=== PATIENT | female | born 1970 | race Caucasian/White ===

== ENCOUNTER 2017-12-08 20:09 | Observation (INO) | payer OTHER ==
[~2017-12-08] VITALS: Ht 154.9 cm; Wt 77.0 kg
[2017-12-08 21:15] LABS: BASOPHILS ABSOLUTE AUTO 0.03 K/mm3 (0.00-0.23); BASOPHILS PERCENT AUTO 1 % (0-2); EOSINOPHILS ABSOLUTE AUTO 0.09 K/mm3 (0.00-0.68); EOSINOPHILS PERCENT AUTO 2 % (0-6); Hematocrit 36.9 % (33.0-51.0); Hemoglobin 12.1 g/dL (11.5-16.0); IMMATURE GRAN ABSOLUTE AUTO 0.01 K/mm3 (0.00-0.10); IMMATURE GRAN PERCENT AUTO 0 % (0-1); LYMPHOCYTES ABSOLUTE AUTO 1.85 K/mm3 (0.84-5.20); LYMPHOCYTES PERCENT AUTO 31 % (21-46); MONOCYTES ABSOLUTE AUTO 0.53 K/mm3 (0.16-1.47); MONOCYTES PERCENT AUTO 9 % (4-13); Mean Corpuscular HGB 32.7 pg (26.0-34.0); Mean Corpuscular HGB Conc 32.8 g/dL (31.5-36.5); Mean Corpuscular Volume 100 fL (80-100); Mean Platelet Volume 9.3 fL (9.1-12.4); NEUTROPHILS ABSOLUTE AUTO 3.54 K/mm3 (1.96-9.15); NEUTROPHILS PERCENT AUTO 58 % (41-73); Platelet Count 320 K/mm3 (150-400); RDW Coefficient Variation 12.9 % (11.7-14.2); RDW Standard Deviation 47.3 fL (35.1-46.3); White Blood Cell Count 6.05 K/mm3 (4.00-11.30)
[2017-12-08 21:26] LABS: Alanine Aminotransfer (ALT/SGP 23 U/L (12-78); Albumin, Blood 3.2 g/dL (3.4-5.0); Albumin/Globulin Ratio 0.8 (0.8-1.8); Alk Phos 127 U/L (50-136); Anion Gap 5 mmol/L (6-16); Aspartate Aminotrans (AST/SGOT 10 U/L (12-37); Bilirubin, Total 0.1 mg/dL (0.1-1.0); Blood Urea Nitrogen 24 mg/dL (8-24); Bun/Creatinine Ratio 33.4 (12.0-20.0); CO2, Blood 29 mmol/L (21-32); Calcium, Blood 8.6 mg/dL (8.5-10.1); Chloride, Blood 108 mmol/L (98-108); Creatinine, Blood 0.72 mg/dL (0.40-1.00); Dilantin (Phenytoin), Total 6.3 ug/mL (10.0-20.0); Globulin, Blood 3.8 g/dL (2.2-4.0); Glomerular Filtration Rate >60 (60-); Glucose, Blood 90 mg/dL (70-99); Potassium, Blood 3.9 mmol/L (3.5-5.5); Sodium, Blood 142 mmol/L (136-145); Valproic Acid <3.0 ug/mL (50.0-100.0)
[2017-12-08] MEDS ORDERED: Naltrexone HCl50 MG PO (22:05)
[2017-12-08] MEDS ORDERED: RISP4 PO (22:05)
[2017-12-08] MEDS ORDERED: CLON.1 PO (22:05)
[2017-12-08] MEDS ORDERED: PARO30 PO (22:06)
[2017-12-08] MEDS ORDERED: CHOL10002 PO (22:06)
[2017-12-08] MEDS ORDERED: OLAN7.5 PO (22:07)
[2017-12-08] MEDS ORDERED: CHLORHEXIDINE FL1 ML UD (22:07)
[2017-12-08] MEDS ORDERED: PHENY50CH PO (22:08)
[2017-12-08] MEDS ORDERED: HEARTBURN RELI150 M1 PO (22:09)
[2017-12-08] MEDS ORDERED: CIPDEXSU BOTHEARS (22:10)
[2017-12-08] MEDS ORDERED: ACET500 PO (22:10)
[2017-12-08] MEDS ORDERED: CLON.5 PO (22:10)
[2017-12-08] MEDS ORDERED: BENADRYL25 MG PO (22:11)
[2017-12-09 02:33] LABS: Valproic Acid 48.3 ug/mL (50.0-100.0)
[2017-12-09 06:39] LABS: Anion Gap 7 mmol/L (6-16); Blood Urea Nitrogen 14 mg/dL (8-24); Bun/Creatinine Ratio 21.7 (12.0-20.0); CO2, Blood 27 mmol/L (21-32); Calcium, Blood 9.1 mg/dL (8.5-10.1); Chloride, Blood 109 mmol/L (98-108); Creatinine, Blood 0.64 mg/dL (0.40-1.00); Glomerular Filtration Rate >60 (60-); Glucose, Blood 102 mg/dL (70-99); Potassium, Blood 4.1 mmol/L (3.5-5.5); Sodium, Blood 143 mmol/L (136-145); Valproic Acid 38.7 ug/mL (50.0-100.0)
[2017-12-09 11:17] LABS: Valproic Acid 33.1 ug/mL (50.0-100.0)
== END 2017-12-09 13:50 | disposition home or self-care (01) ==
LOC: ER 20:09 → ICUW 20:10
PROVIDERS: Emergency Medicine; Hospitalist
DX: T42.6X1A Poisoning by other antiepileptic and sedative-hypnotic drugs, accidental (unintentional), initial encounter (principal); T43.591A Poisoning by other antipsychotics and neuroleptics, accidental (unintentional), initial encounter; T44.7X1A Poisoning by beta-adrenoreceptor antagonists, accidental (unintentional), initial encounter; T46.6X1A Poisoning by antihyperlipidemic and antiarteriosclerotic drugs, accidental (unintentional), initial encounter; F43.10 Post-traumatic stress disorder, unspecified; G40.909 Epilepsy, unspecified, not intractable, without status epilepticus; K21.9 Gastro-esophageal reflux disease without esophagitis; Z79.899 Other long term (current) drug therapy
CPT/HCPCS: 36415; 80048; 80053; 80164; 80185; 82140; 85025; 93005; 93010; 96372; 99285; G0378; J1650; J7120

== ENCOUNTER 2018-09-03 06:27 | Day surgery (SDC) | payer OTHER ==
[~2018-09-03] VITALS: Ht 154.9 cm; Wt 77.1 kg
--- NOTE | 2018-09-03 08:09 | NUR ---
09/03/18 0809 Kelly Lemons PT'S BREAST AND PELVIC EXAM COMPLETED FIRST BY DR. WU. CERVICAL POLYP NOTED AND PATHOLOGY SPECIMEN SENT TO LAB.
--- NOTE | 2018-09-03 11:09 | NUR ---
09/03/18 1109 Cynthia Jaeger CAREGIVER VERBALIZED UNDERSTANDING OF DISCHARGE INSTRUCTIONS. PATIENT AWAKE ALERT DRINKING SODA. DENIES PAIN OR NAUSEA
== END 2018-09-03 10:53 | disposition home or self-care (01) ==
LOC: ORSCSDS 06:27
PROVIDERS: Dentist Pediatric Dentistry
PROC: 8E0UXY7 Examination of Female Reproductive System (ICD-10-PCS; principal; 2018-09-03 07:30)
PROC: 0UBC7ZX Excision of Cervix, Via Natural or Artificial Opening, Diagnostic (ICD-10-PCS; principal; 2018-09-03 07:30)
PROC: 0CDXXZ0 Extraction of Lower Tooth, Single, External Approach (ICD-10-PCS; principal; 2018-09-03 07:30)
DX: Z01.419 Encounter for gynecological examination (general) (routine) without abnormal findings (principal); N84.1 Polyp of cervix uteri; K02.9 Dental caries, unspecified; K05.30 Chronic periodontitis, unspecified; R56.9 Unspecified convulsions; R62.50 Unspecified lack of expected normal physiological development in childhood; F43.10 Post-traumatic stress disorder, unspecified; Z79.899 Other long term (current) drug therapy
CPT/HCPCS: 88305; J1100; J1885; J2250; J2405; J3010

== ENCOUNTER → 2018-09-03 | Outpatient (CLI) | payer OTHER ==
[~2018-09-03] MED LIST: ACET500 PO; BENADRYL25 MG PO; CHLORHEXIDINE FL1 ML UD; CHOL10002 PO; CIPDEXSU BOTHEARS; CLON.1 PO; CLON.5 PO; HEARTBURN RELI150 M1 PO; Naltrexone HCl50 MG PO; OLAN7.5 PO; PARO30 PO; PHENY50CH PO; RISP4 PO
[2018-09-07 15:07] LABS: HPV 16 Negative (Negative); HPV 18 Negative (Negative); HPV OTHER HR TYPES Negative (Negative)
== END | disposition home or self-care (01) ==
LOC: LAB SHORT 10:37 → LAB 10:37
PROVIDERS: Obstetrics & Gynecology Gynecology
DX: Z12.4 Encounter for screening for malignant neoplasm of cervix (principal)
CPT/HCPCS: 87624; G0123

== ENCOUNTER → 2022-01-30 | Outpatient (CLI) | payer OTHER ==
[2022-01-30 14:44] LABS: Source, Urine Clean Catch
[2022-01-30 15:09] LABS: Appearance, Urine Clear (Clear); Bilirubin, Urine Neg (Neg); Blood, Urine Neg (Neg); Glucose Qualitative, Urine Neg (Neg); Ketones, Urine Neg (Neg); Leukocyte Esterase, Urine Neg (Neg); Nitrite, Urine Neg (Neg); Protein, Urine Neg (Neg); Urobilinogen, Urine NORM (Normal)
[2022-01-30 15:31] LABS: Color, Urine Pale Yellow (P-Yellow)
== END | disposition home or self-care (01) ==
LOC: LAB SHORT 13:32 → LAB 13:32
PROVIDERS: Student in an Organized Health Care Education/Training Program
DX: R35.89 Other polyuria (principal)
CPT/HCPCS: 81003

== ENCOUNTER → 2024-10-12 | Outpatient (CLI) | payer OTHER | LOC: LAB SHORT 11:05 → LAB 11:05 | PROVIDERS: Nurse Practitioner Psychiatric/Mental Health | DX: G40.909 Epilepsy, unspecified, not intractable, without status epilepticus (principal) | CPT/HCPCS: 80185 ==

== ENCOUNTER 2025-02-03 10:06 | Emergency (ER) | payer OTHER ==
[~2025-02-03] VITALS: Ht 154.9 cm; Wt 79.4 kg
[2025-02-03 10:23] VITALS: BP 102/68
== END 2025-02-03 10:53 | disposition home or self-care (01) ==
LOC: ER 10:06
DX: R41.82 Altered mental status, unspecified (principal); G40.909 Epilepsy, unspecified, not intractable, without status epilepticus; Z79.899 Other long term (current) drug therapy
CPT/HCPCS: 99283

== ENCOUNTER → 2025-03-03 | Outpatient (CLI) | payer OTHER | LOC: LAB 12:18 → LAB SHORT 12:18 | DX: F39 Unspecified mood [affective] disorder (principal) | CPT/HCPCS: 84443 ==

== ENCOUNTER → 2025-04-25 | Outpatient (CLI) | payer OTHER ==
[2025-04-25 14:33] LABS: Source, Urine Clean Catch
[2025-04-25 18:16] LABS: Bilirubin, Urine Neg (Neg); Color, Urine Yellow (P-Yellow); Glucose Qualitative, Urine Neg (Neg); Ketones, Urine Neg (Neg); Leukocyte Esterase, Urine 2+ (Neg); Protein, Urine 1+ (Neg); Specific Gravity, Urine 1.020 (1.003-1.022); Urobilinogen, Urine NORM (Normal)
== END ==
LOC: LAB SHORT 14:31 → LAB 14:31
PROVIDERS: Obstetrics & Gynecology
DX: R63.4 Abnormal weight loss (principal)
CPT/HCPCS: 81001; 87086

== ENCOUNTER → 2025-06-06 | Outpatient (CLI) | payer OTHER ==
[~2025-06-06] MED LIST changes: +CATAPRES0.1 MG PO; +Clonazepam0.5 MG PO; +DIVA500EC PO; +ESTROVEN CMPLT M4 MG; +FAMO20 PO; +NAC600 MG PO; +PHENY100ER PO; -PHENY50CH PO; +VITAMIN D33000 UNIT PO; +ZIPR20 PO
[2025-06-06 17:24] LABS: Source, Urine Clean Catch
[2025-06-06 18:59] LABS: Bilirubin, Urine Neg (Neg); Color, Urine Yellow (P-Yellow); Glucose Qualitative, Urine Neg (Neg); Ketones, Urine Neg (Neg); Leukocyte Esterase, Urine Neg (Neg); Protein, Urine 1+ (Neg); Specific Gravity, Urine 1.020 (1.003-1.022); Urobilinogen, Urine NORM (Normal)
== END | disposition home or self-care (01) ==
LOC: LAB 17:15 → LAB SHORT 17:15
PROVIDERS: Obstetrics & Gynecology
DX: Z01.812 Encounter for preprocedural laboratory examination (principal)
CPT/HCPCS: 81001

== ENCOUNTER 2025-06-14 08:47 | Day surgery (SDC) | payer OTHER ==
[2025-06-14] VITALS (7 sets, daily range): BP systolic 116–138; BP diastolic 72–84
[~2025-06-14] VITALS: Ht 154.9 cm; Wt 57.1 kg
--- NOTE | 2025-06-14 09:25 | NUR ---
Ambulatory in Day Surgery. History, Chart, Medications and Allergies reviewed before start of procedure. Lungs clear T/O to Auscultation. Patient confirms NPO status and agrees with scheduled surgery. Pre-Op teaching done. Pt verbalizes understanding. Patient States Post-Procedure ride home has been arranged. Caregiver at bedside. Pt calm, responds approp to questions at times. Frequent re-orientation needed throughout care.
[2025-06-14] MEDS ORDERED: FentaNYL Citrate 50 MCG/ML 2 ML Injection ONE (09:47)
[2025-06-14] MEDS ORDERED: Ondansetron HCl 2 MG / ML 2ML Vial IV PRN (09:50)
[2025-06-14] MEDS ORDERED: HYDROmorphone HCl/Pf 1MG SYR IV PRN ×2 (09:50→09:55)
[2025-06-14] MEDS ORDERED: FentaNYL Citrate 50 MCG/ML 2 ML Injection IV PRN ×2 (09:50)
[2025-06-14 09:57] LABS: BASOPHILS ABSOLUTE AUTO 0.05 K/mm3 (0.00-0.23); BASOPHILS PERCENT AUTO 1 % (0-2); EOSINOPHILS ABSOLUTE AUTO 0.06 K/mm3 (0.00-0.68); EOSINOPHILS PERCENT AUTO 1 % (0-6); Hematocrit 37.9 % (33.0-51.0); Hemoglobin 12.7 g/dL (11.5-16.0); IMMATURE GRAN ABSOLUTE AUTO 0.01 K/mm3 (0.00-0.10); IMMATURE GRAN PERCENT AUTO 0 % (0-1); LYMPHOCYTES ABSOLUTE AUTO 1.94 K/mm3 (0.84-5.20); LYMPHOCYTES PERCENT AUTO 43 % (21-46); MONOCYTES ABSOLUTE AUTO 0.42 K/mm3 (0.16-1.47); MONOCYTES PERCENT AUTO 9 % (4-13); Mean Corpuscular HGB Conc 33.5 g/dL (31.5-36.5); Mean Corpuscular Volume 101 fL (80-100); NEUTROPHILS ABSOLUTE AUTO 2.05 K/mm3 (1.96-9.15); NEUTROPHILS PERCENT AUTO 45 % (41-73); NRBC ABSOLUTE 0.00 K/mm3 (0.00-0.02); NRBC Auto 0.0 /100 WBC (0.0-0.2); Platelet Count 280 K/mm3 (150-400); RDW Coefficient Variation 12.6 % (11.7-14.2); RDW Standard Deviation 47.0 fL (35.1-46.3)
[2025-06-14] MEDS ORDERED: Dexamethasone Sod Phos 10 MG/ML 1ML VIAL ONE (10:08)
[2025-06-14 10:18] LABS: Anion Gap 6.0 mmol/L (3-11); Blood Urea Nitrogen 16.0 mg/dL (8-24); CO2, Blood 30.0 mmol/L (21-32); Calcium, Blood 9.9 mg/dL (8.5-10.1); Chloride, Blood 109.0 mmol/L (98-108); Creatinine, Blood 0.5 mg/dL (0.40-1.00); Glucose, Blood 93.0 mg/dL (70-99); Potassium, Blood 3.7 mmol/L (3.5-5.5); Sodium, Blood 141.0 mmol/L (136-145)
[2025-06-14] MEDS ORDERED: Ondansetron HCl 2 MG / ML 2ML Vial ONE (10:22)
[2025-06-14] MEDS ORDERED: Ketorolac Tromethamine 30mg Vial ONE (10:43)
[2025-06-14] MEDS ORDERED: OxyCODONE 5 mg/Acetamin 325 mg TABLET PO PRN (11:40)
--- NOTE | 2025-06-14 12:00 | NUR ---
Discharge instructions reviewed with patient. Patient verbalizes understanding. Copy given to patient to take home. Discharged via wheelchair to private car for ride home. Patient States Post-Procedure ride home has been arranged.
== END 2025-06-14 12:01 | disposition home or self-care (01) ==
LOC: ORSCMMR 08:47 → ORD 09:30 → ORSCMMR 12:01
PROVIDERS: Obstetrics & Gynecology
PROC: 0UDB8ZX Extraction of Endometrium, Via Natural or Artificial Opening Endoscopic, Diagnostic (ICD-10-PCS; principal; 2025-06-14 09:30)
DX: Z01.419 Encounter for gynecological examination (general) (routine) without abnormal findings (principal); R41.89 Other symptoms and signs involving cognitive functions and awareness; R63.4 Abnormal weight loss; R62.50 Unspecified lack of expected normal physiological development in childhood; F43.10 Post-traumatic stress disorder, unspecified; K21.9 Gastro-esophageal reflux disease without esophagitis; Z79.899 Other long term (current) drug therapy
CPT/HCPCS: 76998; 80048; 85025; 87624; 88305; A9270; G0145; J1100; J1885; J2405; J2704; J3010; J7120